=== PATIENT | male | born 1995 | race Caucasian/White ===

== ENCOUNTER 2019-03-02 22:29 | Emergency (ER) | payer SELFPAY ==
[2019-03-02] MEDS ORDERED: Lidocaine 1% 20 ML MDV INJECT ONE (22:44)
[2019-03-02] MEDS ORDERED: Bacitracin Oint 1 GM U/D Packet TOP ONE (22:44)
--- NOTE | 2019-03-03 00:40 | EDM.PDOC ---
ED HPI GENERAL MEDICAL PROBLEM - General Chief Complaint: Laceration Stated Complaint: LACERATION RIGHT 5TH FINGER Time Seen by Provider: 03/02/19 22:45 Source of Information: Reports: Patient History Limitations: Reports: No Limitations - History of Present Illness INITIAL COMMENTS - FREE TEXT/NARRATIVE: pt arrived with a1.5 laceration in the dorasal aspect of the small finger on the rt. He has normal sensation nd normal motion. Onset: Today Duration: Hour(s):, Other (pt was fixing on a car and caught the finger on a piece of metal. ) Location: Reports: Upper Extremity, Right Quality: Reports: Sharp Associated Symptoms: Reports: No Other Symptoms Right Hand Pain Score (Numeric/FACES): 8 - Related Data Allergies Allergy/AdvReac Type Severity Reaction Status Date / Time No Known Allergies Allergy Verified 03/02/19 22:44 Home Meds: Home Meds NK [No Known Home Meds] 03/02/19 [History] Past Medical History HEENT History: Reports: Impaired Vision Cardiovascular History: Reports: Hypertension Respiratory History: Reports: Asthma Neurological History: Reports: Concussion Social & Family History - Tobacco Use Smoking Status *Q: Never Smoker - Caffeine Use Caffeine Use: Reports: Soda - Recreational Drug Use Recreational Drug Use: No ED ROS GENERAL - Review of Systems Review Of Systems: See Below Constitutional: Reports: No Symptoms HEENT: Reports: No Symptoms Respiratory: Reports: No Symptoms Cardiovascular: Reports: No Symptoms Endocrine: Reports: No Symptoms GI/Abdominal: Reports: No Symptoms : Reports: No Symptoms Musculoskeletal: Reports: Other (laceration of small finger on dorsal aspect. ) ED EXAM, SKIN/RASH Exam: See Below Text/Narrative:: Pt has a 1.5 inch laceration on the dorsal aspect of the rt small finger. Exam Limited By: No Limitations General Appearance: Alert Extremities: Other ( rt small finger has a 1.5 inch laceration on the dorsal aspect of the rt small finger. He has normal range of motion and normal sensation. His tendond is visable. It looks like the cut jsust went down to the tendon sheath. ) Neurological: Alert, Oriented, Normal Cognition Course - Vital Signs Last Recorded V/S: Last Vital Signs Temp 36.9 C 03/02/19 22:48 Pulse 111 H 03/02/19 22:48 Resp 16 03/02/19 22:48 BP 160/97 H 03/02/19 22:48 Pulse Ox 98 03/02/19 22:48 - Orders/Labs/Meds Meds: Medications Discontinued Medications Generic Name Dose Route Start Last Admin Trade Name Mellisa PRN Reason Stop Dose Admin Bacitracin 1 dose 03/02/19 22:44 03/02/19 22:57 Bacitracin Oint 1 Gm TOP 03/02/19 22:45 1 dose ONETIME ONE Administration Lidocaine HCl 20 ml 03/02/19 22:44 03/02/19 22:57 Xylocaine 1% INJECT 03/02/19 22:45 20 ml ONETIME ONE Administration - Re-Assessments/Exams Free Text/Narrative Re-Assessment/Exam: 03/03/19 00:51 The wound was cleaned well. He was infiltrated with lidocaine and closed with 5 -0 xchromic and 5-0 prolene. It was dressed with bacatracin Departure - Departure Time of Disposition: 00:47 Disposition: Home, Self-Care 01 Condition: Fair Clinical Impression: Laceration - Discharge Information Referrals: PCP,None [Primary Care Provider] - Forms: ED Department Discharge Care Plan Goals: no further ointments, keep dry, keep covered with a dry dressing, sr in 7-8 dsys.
== END 2019-03-03 01:03 | disposition home or self-care (01) ==
LOC: JP.ED 22:29
DX: S61.216A Laceration without foreign body of right little finger without damage to nail, initial encounter (principal); I10 Essential (primary) hypertension; W22.8XXA Striking against or struck by other objects, initial encounter
CPT/HCPCS: 12002; 99282; J2001